=== PATIENT | male | born 1945 | race Caucasian/White ===

== ENCOUNTER 2021-11-30 06:52 | Emergency (ER) | payer MEDICARE, BC ==
[~2021-11-30] VITALS: Ht 181.6 cm; Wt 93.2 kg
[2021-11-30 08:15] LABS: BASOPHILS # (AUTO) 0.1 X10'3 (0-0.2); BASOPHILS % (AUTO) 0.9 % (0-1); EOSINOPHILS # (AUTO) 0.1 X10'3 (0-0.9); EOSINOPHILS % (AUTO) 1.2 % (0-6); HEMATOCRIT 40.7 % (42.0-52.0); HEMOGLOBIN 14.1 g/dl (14.0-17.9); LYMPHOCYTES # (AUTO) 1.5 X10'3 (1.1-4.8); LYMPHOCYTES % (AUTO) 17.9 % (21-51); MEAN CORPUSCULAR HEMOGLOBIN 30.2 PG (27.0-31.0); MEAN CORPUSCULAR HGB CONC 34.7 g/dL (33.0-36.5); MEAN CORPUSCULAR VOLUME 86.8 FL (78-98); MONOCYTES # (AUTO) 0.8 X10'3 (0-0.9); NEUTROPHILS # (AUTO) 6.1 X10'3 (1.8-7.7); PLATELET COUNT 204 X10'3 (140-440); RED BLOOD COUNT 4.68 X10'6 (4.70-6.10); RED CELL DISTRIBUTION WIDTH 14.1 % (11.5-14.5); WHITE BLOOD COUNT 8.5 X10'3 (4.5-11.0)
[2021-11-30 08:26] LABS: ALBUMIN 3.8 G/DL (3.4-5.0); ALBUMIN/GLOBULIN RATIO 0.9 (1.1-1.5); ALKALINE PHOSPHATASE 92 IU/L (46-116); ANION GAP 11 (8-16); ASPARTATE AMINO TRANSFERASE 22 U/L (10-37); BILIRUBIN,TOTAL 0.8 MG/DL (0.1-1.0); BLOOD UREA NITROGEN 19 MG/DL (7-18); BUN/CREATININE RATIO 15.4 (5.4-32.0); CALCIUM 7.4 MG/DL (8.5-10.1); CHLORIDE 99 MMOL/L (99-107); CREATININE 1.23 MG/DL (0.60-1.10); GLUCOSE 115 MG/DL (70-104); LIPASE 108 U/L (73-393); SODIUM 137 MMOL/L (135-145); TOTAL CARBON DIOXIDE 27.5 MMOL/L (24-32); eGFR 57 ML/MIN
[2021-11-30 08:30] LABS: POTASSIUM 2.9 MMOL/L (3.5-5.1)
[2021-11-30 08:42] LABS: ALANINE AMINOTRANSFERASE 23 U/L (12-78)
[2021-11-30] MEDS ORDERED: potassium CL 10mEq/100ml bag 100 ML IV ONE (10:30)
[2021-11-30] MEDS ORDERED: magnesium 2GM in 50ml NS 50 ML IV SCH ×2 (10:30→10:50)
[2021-11-30] MEDS ORDERED: ondansetron/PF 4mg/2ml inj IV ONE (10:30)
[2021-11-30] MEDS ORDERED: normal saline 1000ML IV soln IVB ONE (10:30)
[2021-11-30] MEDS ORDERED: potassium Cl 20 mEq SR tablet PO ONE (10:30)
[2021-11-30] MEDS ORDERED: morphine 4 MG/ML inj SYRINge IV ONE (10:30)
[2021-11-30 10:44] LABS: MAGNESIUM 0.3 MG/DL (1.5-2.4)
[2021-11-30 13:15] LABS: CLARITY,URINE CLEAR (Clear); COLOR,URINE YELLOW (Yellow); GLUCOSE, URINE NEGATIVE (Neg); KETONES,URINE TRACE mg/dl (Neg); LEUKOCYTE ESTERASE ,URINE NEGATIVE (Neg); NITRITES, URINE NEGATIVE (Neg); OCCULT BLOOD,URINE NEGATIVE (Neg); PROTEIN,URINE TRACE mg/dl (Neg); UROBILINOGEN,URINE 0.2 E.U/dL (0.2-1.0)
[2021-11-30 13:18] LABS: UA COLLECTION TYPE CLN CATCH MIDSTREAM
[2021-11-30 13:33] LABS: BACTERIA,URINE NONE SEEN /HPF (Neg); MUCUS STRANDS NONE SEEN /LPF (Neg); RBC,URINE NONE SEEN /HPF (0-2); SQUAMOUS EPITHELIAL CELL,UR FEW /LPF (FEW); WBC,URINE 0-4 /HPF (0-4)
[2021-11-30 13:34] LABS: HYALINE CASTS 0-3 /LPF (NEGATIVE)
[2021-11-30 14:08] LABS: ALANINE AMINOTRANSFERASE 19 U/L (12-78); ALBUMIN 3.7 G/DL (3.4-5.0); ALKALINE PHOSPHATASE 86 IU/L (46-116); ANION GAP 13 (8-16); ASPARTATE AMINO TRANSFERASE 21 U/L (10-37); BILIRUBIN,TOTAL 0.7 MG/DL (0.1-1.0); BLOOD UREA NITROGEN 17 MG/DL (7-18); BUN/CREATININE RATIO 14.8 (5.4-32.0); CALCIUM 7.1 MG/DL (8.5-10.1); CHLORIDE 102 MMOL/L (99-107); CREATININE 1.15 MG/DL (0.60-1.10); GLUCOSE 95 MG/DL (70-104); MAGNESIUM 1.1 MG/DL (1.5-2.4); POTASSIUM 3.4 MMOL/L (3.5-5.1); SODIUM 143 MMOL/L (135-145); TOTAL CARBON DIOXIDE 27.8 MMOL/L (24-32); TOTAL PROTEIN 7.5 G/DL (6.4-8.2); eGFR 62 ML/MIN
[2021-11-30] MEDS ORDERED: ONDA4TAB12 PO (14:29)
[2021-11-30 14:37] VITALS: BP 142/69
== END 2021-11-30 06:53 | disposition home or self-care (01) ==
LOC: ER 06:53
DX: K52.89 Other specified noninfective gastroenteritis and colitis (principal); I10 Essential (primary) hypertension; I51.9 Heart disease, unspecified; E11.9 Type 2 diabetes mellitus without complications; Z79.899 Other long term (current) drug therapy; Z98.890 Other specified postprocedural states
CPT/HCPCS: 36415; 74176; 80053; 81001; 83690; 83735; 84484; 85025; 96365; 96366; 96368; 96375; 99285; J2405; J3475; J3480; J7030

== ENCOUNTER 2023-07-04 13:27 | Inpatient (IN) | payer MEDICARE, BC ==
[~2023-07-04] VITALS: Ht 172.7 cm; Wt 93.0 kg
[~2023-07-04 13:27] MED LIST: ONDA4TAB12 PO
[2023-07-04 13:29] VITALS: TEMP 99
[2023-07-04 14:13] LABS: BASOPHILS % (AUTO) 0.5 % (0-1); EOSINOPHILS # (AUTO) 0.1 X10'3 (0-0.9); EOSINOPHILS % (AUTO) 0.6 % (0-6); HEMATOCRIT 41.5 % (42.0-52.0); HEMOGLOBIN 14.3 g/dl (14.0-17.9); LYMPHOCYTES # (AUTO) 1.5 X10'3 (1.1-4.8); LYMPHOCYTES % (AUTO) 15.8 % (21-51); MEAN CORPUSCULAR HEMOGLOBIN 29.8 PG (27.0-31.0); MEAN CORPUSCULAR HGB CONC 34.4 g/dL (33.0-36.5); MEAN CORPUSCULAR VOLUME 86.7 FL (78-98); MEAN PLATELET VOLUME 8.9 FL (7.4-10.4); MONOCYTES # (AUTO) 0.8 X10'3 (0-0.9); MONOCYTES % (AUTO) 8.2 % (2-12); NEUTROPHILS % (AUTO) 74.9 % (42-75); PLATELET COUNT 249 X10'3 (140-440); RED BLOOD COUNT 4.78 X10'6 (4.70-6.10); RED CELL DISTRIBUTION WIDTH 14.9 % (11.5-14.5); WHITE BLOOD COUNT 9.3 X10'3 (4.5-11.0)
[2023-07-04 14:36] LABS: ALANINE AMINOTRANSFERASE 13 U/L (12-78); ALBUMIN 3.6 G/DL (3.4-5.0); ALBUMIN/GLOBULIN RATIO 0.9 (1.1-1.5); ALKALINE PHOSPHATASE 93 IU/L (46-116); ASPARTATE AMINO TRANSFERASE 21 U/L (10-37); BILIRUBIN,DIRECT 0.2 MG/DL (0-0.3); BILIRUBIN,TOTAL 0.8 MG/DL (0.1-1.0); LIPASE 35 U/L (16-77); PRO BRAIN NATRIURETIC PEPTIDE 475 PG/ML (0-450); TOTAL PROTEIN 7.6 G/DL (6.4-8.2)
[2023-07-04 14:37] LABS: MAGNESIUM 0.4 MG/DL (1.5-2.4)
[2023-07-04 15:04] LABS: ALBUMIN 3.6 G/DL (3.4-5.0); ANION GAP 14 (8-16); BLOOD UREA NITROGEN 9 MG/DL (7-18); BUN/CREATININE RATIO 10.6 (10.0-20.0); CALCIUM 7.1 MG/DL (8.5-10.1); CHLORIDE 101 MMOL/L (99-107); CREATININE 0.85 MG/DL (0.60-1.10); GLUCOSE 115 MG/DL (70-104); POTASSIUM 3.2 MMOL/L (3.5-5.1); SODIUM 142 MMOL/L (135-145); TOTAL CARBON DIOXIDE 27.4 MMOL/L (24-32); eCRCL 67 ML/MIN; eGFR 87 ML/MIN
[2023-07-04] MEDS: ondansetron/PF 4mg/2ml inj IV ONE (15:13)
[2023-07-04] MEDS: magnesium 2GM in 50ml NS 50 ML IV ONE (15:14)
[2023-07-04] MEDS ORDERED: cholecalciferol (vitamin D3) 1,000 unit (25mcg) tablet PO SCH (15:15)
[2023-07-04] MEDS: normal saline 1000ML IV soln IVB ONE (15:20)
[2023-07-04] MEDS: cholecalciferol (vitamin D3) 1,000 unit (25mcg) tablet PO ONE (15:29)
[2023-07-04] MEDS: CALCIUM GLUC 1gm/50ml NACL,iso 50 ML IV ONE (15:29)
[2023-07-04] MEDS: potassium Cl 20 mEq SR tablet PO STA (17:02)
[2023-07-04 17:25] LABS: ALANINE AMINOTRANSFERASE 14 U/L (12-78); ALBUMIN 3.2 G/DL (3.4-5.0); ALBUMIN/GLOBULIN RATIO 0.9 (1.1-1.5); ANION GAP 13 (8-16); ASPARTATE AMINO TRANSFERASE 13 U/L (10-37); BILIRUBIN,TOTAL 0.8 MG/DL (0.1-1.0); BLOOD UREA NITROGEN 10 MG/DL (7-18); CALCIUM 6.9 MG/DL (8.5-10.1); CHLORIDE 103 MMOL/L (99-107); CREATININE 0.83 MG/DL (0.60-1.10); GLUCOSE 103 MG/DL (70-104); POTASSIUM 3.2 MMOL/L (3.5-5.1); SODIUM 143 MMOL/L (135-145); TOTAL CARBON DIOXIDE 27.3 MMOL/L (24-32); TOTAL PROTEIN 6.9 G/DL (6.4-8.2); eCRCL 69 ML/MIN; eGFR 89 ML/MIN
[2023-07-04 17:26] LABS: ALKALINE PHOSPHATASE 81 IU/L (46-116)
[2023-07-04 17:34] LABS: BILIRUBIN,URINE SMALL (Neg); CLARITY,URINE CLEAR (Clear); COLOR,URINE YELLOW (Yellow); GLUCOSE, URINE NEGATIVE (Neg); KETONES,URINE 15 mg/dl (Neg); LEUKOCYTE ESTERASE ,URINE NEGATIVE (Neg); NITRITES, URINE NEGATIVE (Neg); OCCULT BLOOD,URINE NEGATIVE (Neg); PROTEIN,URINE TRACE mg/dl (Neg); UROBILINOGEN,URINE 0.2 E.U/dL (0.2-1.0)
[2023-07-04 17:42] LABS: UA COLLECTION TYPE VOIDED
[2023-07-04 17:43] LABS: MUCUS STRANDS MODERATE /LPF (Neg); SQUAMOUS EPITHELIAL CELL,UR MODERATE /LPF (FEW)
[2023-07-04 17:44] LABS: HYALINE CASTS 0-3 /LPF (NEGATIVE)
[2023-07-04 17:45] LABS: BACTERIA,URINE FEW /HPF (Neg); RBC,URINE 0-2 /HPF (0-2)
[2023-07-04 17:53] LABS: MAGNESIUM 0.9 MG/DL (1.5-2.4)
[2023-07-04 19:04] LABS: FREE T4 (FREE THYROXINE) 1.63 NG/DL (0.73-1.40); THYROID STIMULATING HORMONE 1.04 ulU/ml (0.34-4.50)
[2023-07-04] MEDS ORDERED: potassium Cl 20 mEq SR tablet PO PRN ×2 (19:30)
[2023-07-04] MEDS ORDERED: magnesium hydroxide 30ml (MOM) UD suspension PO PRN (19:30)
[2023-07-04] MEDS ORDERED: potassium Cl 40MEQ/1/2NS 520ml 520 ML IV PRN (19:30)
[2023-07-04] MEDS ORDERED: acetaminophen 325mg tablet PO PRN (19:30)
[2023-07-04] MEDS ORDERED: magnesium Cl slow-release 64mg tablet PO PRN (19:30)
[2023-07-04] MEDS ORDERED: ondansetron/PF 4mg/2ml inj IV PRN (19:30)
[2023-07-04] MEDS ORDERED: mag hydrox/Alum hydrox/simeth 30ml oral suspension PO PRN (19:30)
[2023-07-04] MEDS ORDERED: DEXTROSE 15 GM of carb/4 tabs (each vial/BOTTLE has 4 tablets) PO PRN ×2 (19:45)
[2023-07-04] MEDS ORDERED: insulin Lispro (HumaLOG) vial - multi-dose SQ SCH (19:45)
[2023-07-04] MEDS ORDERED: glucagon, human recombinant 1mg kit SUBCUT PRN (19:45)
[2023-07-04] MEDS ORDERED: dextrose 50%-water 50ml dispensing syringe IV PRN ×2 (19:45)
[2023-07-04] MEDS ORDERED: ASPI81TA52 PO (21:34)
[2023-07-04] MEDS: K and/or MAG REPLACEMENT MC SCH (21:36)
[2023-07-04] MEDS: docusate sod 100mg capsule PO SCH (21:36)
[2023-07-04] MEDS: famotidine/PF 10 mg/ml inj IV ONE (21:37)
[2023-07-04] MEDS: heparin, porcine 5000 units/ml vial SQ SCH (21:37)
[2023-07-04] MEDS: magnesium 2GM in 50ml NS 50 ML IV PRN (21:38)
[2023-07-04] MEDS ORDERED: FLO0.4C PO (21:43)
[2023-07-04] MEDS ORDERED: POTA-366 PO (21:43)
[2023-07-04] MEDS ORDERED: GLU850T PO (21:43)
[2023-07-04] MEDS ORDERED: BALS750C (21:43)
[2023-07-04] MEDS ORDERED: OLME1TAB50 PO (21:43)
[2023-07-04] MEDS ORDERED: TOLT4CAP28 PO (21:43)
[2023-07-04] MEDS ORDERED: PANT-47 PO (21:43)
[2023-07-04] MEDS ORDERED: DEXA5DRO4 LEFTEYE (21:43)
[2023-07-04] MEDS ORDERED: [UNRECOGNIZED DRUG - CODE] (21:43)
[2023-07-04] MEDS ORDERED: ROSU20TA73 PO (21:43)
[2023-07-04] MEDS ORDERED: DEXA5DRO4 RIGHTEYE (21:43)
[2023-07-04] MEDS: MESSAGE TO PHARMACY PO ONE (22:16)
[2023-07-05 08:57] LABS: BASOPHILS % (AUTO) 0.5 % (0-1); EOSINOPHILS # (AUTO) 0.1 X10'3 (0-0.9); EOSINOPHILS % (AUTO) 0.8 % (0-6); HEMATOCRIT 38.9 % (42.0-52.0); HEMOGLOBIN 13.2 g/dl (14.0-17.9); LYMPHOCYTES # (AUTO) 1.3 X10'3 (1.1-4.8); LYMPHOCYTES % (AUTO) 16.7 % (21-51); MEAN CORPUSCULAR HEMOGLOBIN 29.5 PG (27.0-31.0); MEAN CORPUSCULAR HGB CONC 33.9 g/dL (33.0-36.5); MEAN CORPUSCULAR VOLUME 87.1 FL (78-98); MEAN PLATELET VOLUME 8.7 FL (7.4-10.4); MONOCYTES # (AUTO) 0.6 X10'3 (0-0.9); MONOCYTES % (AUTO) 8.2 % (2-12); NEUTROPHILS # (AUTO) 5.6 X10'3 (1.8-7.7); NEUTROPHILS % (AUTO) 73.8 % (42-75); PLATELET COUNT 217 X10'3 (140-440); RED BLOOD COUNT 4.47 X10'6 (4.70-6.10); RED CELL DISTRIBUTION WIDTH 14.8 % (11.5-14.5); WHITE BLOOD COUNT 7.6 X10'3 (4.5-11.0)
[2023-07-05 09:33] LABS: ALANINE AMINOTRANSFERASE 16 U/L (12-78); ALBUMIN 3.4 G/DL (3.4-5.0); ALBUMIN/GLOBULIN RATIO 0.8 (1.1-1.5); ALKALINE PHOSPHATASE 88 IU/L (46-116); ANION GAP 9 (8-16); ASPARTATE AMINO TRANSFERASE 16 U/L (10-37); BILIRUBIN,TOTAL 0.8 MG/DL (0.1-1.0); BLOOD UREA NITROGEN 13 MG/DL (7-18); BUN/CREATININE RATIO 16.5 (10.0-20.0); CALCIUM 7.2 MG/DL (8.5-10.1); CHLORIDE 103 MMOL/L (99-107); CREATININE 0.79 MG/DL (0.60-1.10); GLUCOSE 105 MG/DL (70-104); MAGNESIUM 1.2 MG/DL (1.5-2.4); POTASSIUM 3.5 MMOL/L (3.5-5.1); SODIUM 141 MMOL/L (135-145); TOTAL CARBON DIOXIDE 28.9 MMOL/L (24-32); TOTAL PROTEIN 7.9 G/DL (6.4-8.2); eCRCL 72 ML/MIN; eGFR > 90 ML/MIN
[2023-07-05 10:29] LABS: HEMOGLOBIN A1C 6.3 % (4.5-6.2)
[2023-07-05] MEDS: magnesium 4gm in 100ml NS 100 ML IV PRN (12:27)
[2023-07-05 15:41] LABS: ALBUMIN 3.3 G/DL (3.4-5.0); ANION GAP 10 (8-16); BLOOD UREA NITROGEN 14 MG/DL (7-18); BUN/CREATININE RATIO 13.2 (10.0-20.0); CALCIUM 7.1 MG/DL (8.5-10.1); CHLORIDE 100 MMOL/L (99-107); CREATININE 1.06 MG/DL (0.60-1.10); GLUCOSE 148 MG/DL (70-104); MAGNESIUM 2.7 MG/DL (1.5-2.4); POTASSIUM 3.4 MMOL/L (3.5-5.1); SODIUM 138 MMOL/L (135-145); TOTAL CARBON DIOXIDE 27.6 MMOL/L (24-32); eCRCL 54 ML/MIN; eGFR 67 ML/MIN
[2023-07-05] MEDS ORDERED: POTA-366 PO (15:55)
[2023-07-05] MEDS ORDERED: PANT-47 PO (15:55)
[2023-07-05] MEDS ORDERED: MAGN200T PO (15:55)
[2023-07-05 16:27] VITALS: BP 145/71; PULSE 73; RESP 18; O2SAT 94
== END 2023-07-05 16:34 | disposition home or self-care (01) | DRG 641 ==
LOC: ER 13:27 → ED HOLD 19:44 → EDBEDREQ 07-05 14:48
PROVIDERS: ADMIT Internal Medicine; ATTEND Family Medicine
DX: E83.42 Hypomagnesemia (principal); R10.9 Unspecified abdominal pain; I25.10 Atherosclerotic heart disease of native coronary artery without angina pectoris; E11.9 Type 2 diabetes mellitus without complications; K21.9 Gastro-esophageal reflux disease without esophagitis; E87.6 Hypokalemia; I10 Essential (primary) hypertension; I25.2 Old myocardial infarction; Z95.1 Presence of aortocoronary bypass graft; Z95.5 Presence of coronary angioplasty implant and graft; Z79.899 Other long term (current) drug therapy; Z87.891 Personal history of nicotine dependence
CPT/HCPCS: 36415; 80048; 80053; 80076; 81001; 82948; 83036; 83690; 83735; 83880; 83970; 84100; 84439; 84443; 84484; 85025; 87088; 93005; 96365; 96368; 96375; 99285; G0378; J0610; J1644; J1815; J2405; J3475; J3490; J7030